=== PATIENT | female | born 1995 ===

== ENCOUNTER 2018-05-02 22:09 | Outpatient (CLI) | payer OTHER ==
[2018-05-02] MEDS ORDERED: PRENATAL 19 TA1 EAC1 PO (23:08)
[2018-05-02] MEDS ORDERED: SYNTHROID50 MCG PO (23:09)
== END 2018-05-03 15:31 | disposition home or self-care (01) ==
LOC: OBS/DEL 22:09 → LDR 22:10 → OBS/DEL 22:22
DX: O26.893 Other specified pregnancy related conditions, third trimester (principal); R10.2 Pelvic and perineal pain; M54.5 Low back pain; Z34.83 Encounter for supervision of other normal pregnancy, third trimester

== ENCOUNTER 2018-05-10 07:26 | Inpatient (IN) | payer OTHER ==
[~2018-05-10] VITALS: Ht 162.6 cm; Wt 153.0 kg
[~2018-05-10 07:26] MED LIST: PRENATAL 19 TA1 EAC1 PO; SYNTHROID50 MCG PO
== END 2018-05-12 13:47 | disposition home or self-care (01) | DRG 807 ==
LOC: OB/GYN 07:26 → LDR 07:26 → OB/GYN 18:46
PROVIDERS: ADMIT Obstetrics & Gynecology
PROC: 10E0XZZ Delivery of Products of Conception, External Approach (ICD-10-PCS; principal; 2018-05-10)
PROC: 0UQGXZZ Repair Vagina, External Approach (ICD-10-PCS; 2018-05-10)
PROC: 10907ZC Drainage of Amniotic Fluid, Therapeutic from Products of Conception, Via Natural or Artificial Opening (ICD-10-PCS; 2018-05-10)
PROC: 3E033VJ Introduction of Other Hormone into Peripheral Vein, Percutaneous Approach (ICD-10-PCS; 2018-05-10)
PROC: 4A1HXCZ Monitoring of Products of Conception, Cardiac Rate, External Approach (ICD-10-PCS; 2018-05-10)
DX: O71.4 Obstetric high vaginal laceration alone (principal); Z37.0 Single live birth; Z3A.38 38 weeks gestation of pregnancy